=== PATIENT | male | born 1950 | race Hispanic/Latino ===

== ENCOUNTER → 2022-11-15 | Outpatient (CLI) | payer OTHER, MEDICARE ==
[2022-11-15 11:41] LABS: CREATININE 1.5 mg/dL (0.5-1.5)
== END | disposition home or self-care (01) ==
LOC: LAB 10:33
PROVIDERS: ATTEND Otolaryngology Plastic Surgery within the Head & Neck
DX: H90.3 Sensorineural hearing loss, bilateral (principal)
CPT/HCPCS: 36415; 82565; 84520